=== PATIENT | male | born 1950 | race Caucasian/White ===

== ENCOUNTER 2017-06-09 12:17 | Inpatient (IN) | payer MEDICARE ==
[~2017-06-09] VITALS: Ht 175.3 cm; Wt 47.6 kg
--- NOTE | 2017-06-09 17:02 | NUR ---
PT RECIEVED FROM ER. PT ABLE TO TRANSFER SELF FROM GURNEY TO BED. VITALS WNL AT THIS TIME. PT DENIES PAIN, NAUSEA, AND SOB AT THIS TIME. PT ABLE TO COMMUNICATE CLEARLY, HAS RUN ON CONVERSATION WITH FANCIFUL IDEAS AT TIMES.
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
--- NOTE | 2017-06-09 18:45 | NUR ---
PT ABLE TO CECE 20% OF SOFT DINNER, PT STATES "I JUST DON'T EAT THAT MUCH ANY MORE". PT DENIES PAIN, NAUSEA, AND SOB AT THIS TIME. PT RESTING QUIETLY IN BED, COOPERATIVE AND POLITE.
--- NOTE | 2017-06-09 19:30 | NUR ---
REPORT RECEIVED FROM HARJEET LAROSE. PT IS RESTING IN BED, AWAKE, OCCASIONAL COUGHING HEARD. ON DROPLET PRECAUTIONS.
--- NOTE | 2017-06-09 20:30 | NUR ---
ASSESSMENT DONE. PT IS ALERT AND ORIENTED X4. DENIES PAIN AT THIS TIME DOES HAVE C/O COUGH, DENIES FEELING SOB. LUNGS WITH CRACKLES IN BASES, FEW IN LEFT MORE IN RIGHT. IVF INFUSING, PT USING URINAL TO VOID. DENIES NEEDS AT THIS TIME.
--- NOTE | 2017-06-09 22:15 | NUR ---
PT AWAKE IN BED, DENIES NEEDS, TURNING SELF IN BED FREQUENTLY, COUGHING OCCASIONALLY
--- NOTE | 2017-06-10 00:48 | NUR ---
PT RESTING, AWAKE IN BED, RR 33, SPO2 93% ON ROOM AIR DENIES SOB/PAIN. ASSESSMENT DONE, UNCHANGED FROM PREVIOUS.
--- NOTE | 2017-06-10 02:18 | NUR ---
PT RESTING WITH EYES CLOSED, REPS EVEN AND UNLABORED, RR 30 SPO2 94% ON ROOM AIR.
--- NOTE | 2017-06-10 04:15 | NUR ---
IN TO DO ASSESSMENT, AWAKENS EASILY. HAS BEEN HAVING SOME COUGHING THE LAST COUPLE OF HOURS. DENIES SOB, LUNGS STILL WITH CRACKLES IN BASES PT ON ROOM AIR SPO2 94% RR24.
--- NOTE | 2017-06-10 05:53 | NUR ---
LAB IN TO DRAW.
--- NOTE | 2017-06-10 07:18 | NUR ---
PT AWAKE IN BED HAVING SOME COUGHING. DENIES SOB. HAS BEEN ON ROOM AIR ALL NIGHT WITH SPO2 93-97%. OCCASIONAL COUGHING THROUGH THE NIGHT, VOIDING QUANTITY SUFFICIENT IN THE URINAL.
--- NOTE | 2017-06-10 11:11 | NUR ---
PATIENT UP TO BATHROOM AND AMBULATES WELL WITHOUT DIFFICULTY. PT DENIES SHORTNESS OF BREATH UPON EXERTION. PATIENT BACK TO CHAIR AFTER BATHROOM AND NOTES OUTLOUD "I FEEL SO MUCH BETTER TODAY." PATIENT REMAINS IN A SINUS RHYTHM IN THE 70-80s. SP02 IS 96% ON ROOM AIR. PT REMAINS IN DROPLET PRECAUTIONS.
--- NOTE | 2017-06-10 11:31 | NUR ---
DR. PRINCE IN TO SEE PATIENT AT THIS TIME. PT IN NEED OF PRODUCING 3 MORE SPUTUM SAMPLES FOR THE [employer] ORDER. ONE WILL BE SENT TODAY, AND THEN AGAIN TOMORROW MORNING AND AGAIN THE NEXT MORNING FOLLOWING. PATIENT INFORMED OF THIS. PT TO TRANSFER TO MED/SURG WITHOUT TELEMETRY. IVF TO BE TURNED DOWN TO 50 ML/HR. RECORDS TO BE OBTAINED FROM HOSPITAL IN [place] IF POSSIBLE.
--- NOTE | 2017-06-10 14:10 | NUR ---
PATIENT CONTINUES TO SIT IN CHAIR THIS AFTERNOON. NO NEW COMPLAINTS AT THIS TIME. ASSESSMENT UNCHANGED FROM PREVIOUS ASSESSMENT. PT HAS LOW APPETITE AND ATE ONLY HALF OF HIS SANDWICH FOR LUNCH. PT VOIDS TO URINAL FOR 250 ML YELLOW URINE. CONTINUE TO MONITOR. PLAN TO ALLOW PT TO SHOWER THIS AFTERNOON.
--- NOTE | 2017-06-10 15:00 | NUR ---
AMBULATED TO BR TO VOID AND HAVE LIQ STOOL. TOLERATED MOVEMENT WELL. DENEIS SHORTNESS OF BREATH.
--- NOTE | 2017-06-10 15:13 | EKG ---
[facility] [address] [facility] [address] [facility] [place] [address] Signed Normal sinus rhythm Normal ECG No previous ECGs available Confirmed by LIZETH PRINCE MD ([id number]) on 06/10/2017 3:13:35 PM Electronically Signed By: LIZETH PRINCE MD 06/10/17 1513 PATIENT NAME: MURALICECIL SRINIVASAN Electrocardiogram DATE OF : 52 PHYSICIAN: LIZETH PRINCE MD REPORT #: [id number] REPORT IS CONFIDENTIAL AND NOT TO BE RELEASED WITHOUT AUTHORIZATION
--- NOTE | 2017-06-10 17:06 | NUR ---
PT RECEIVED FROM CCU. PT SITTING IN CHAIR. PT ON ROOM AIR, LUNG SOUNDS CLEAR, OCCASIONAL COUGH. PT DENIES NAUSEA, TOLERATING REGUALR DIET, POOR APPETITE. PT SALINE LOCKED FOR SHOWER. CMS INTACT, WITHOUT EDEMA.
--- NOTE | 2017-06-10 18:47 | NUR ---
PT RESTING IN BED. PROVIDED WITH [facility] BLANKETS. PT COMPLETED WITH SHOWER. IV FLUIDS INFUSING AT 50 ML/HR. PT DENIES OTHER NEEDS AT THIS TIME.
--- NOTE | 2017-06-10 19:50 | NUR ---
RECEIVED REPORT FROM RN. PATIENT RESTING COMFORTABLY IN BED. DENIES NEEDS AT THIS TIME.
--- NOTE | 2017-06-10 20:47 | NUR ---
PATIENT RESTING COMFORTABLY IN BED, BREATHING IS EVEN AND UNLABORED. O2 SATURATION IS 95% ON ROOM AIR. DENIES NEEDS AT THIS TIME. MEDICATIONS GIVEN, ASSESSMENT AND VITALS DONE. CALL LIGHT WITHIN REACH.
--- NOTE | 2017-06-11 00:44 | NUR ---
PATIENT RESTING COMFORTABLY IN BED, BREATHING IS EVEN AND UNLABORED. O2 SATURATION IS 95% ON ROOM AIR, PULSE IS 86. DENIES NEEDS AT THIS TIME. CALL LIGHT WITHIN REACH.
--- NOTE | 2017-06-11 02:17 | NUR ---
ASSISTED PATIENT TO BATHROOM WITH SBA/NON-SLIP SOCKS. PATIENT TOLERATING AMBULATION WELL WITHOUT ANY INCREASES IN SHORTNESS OF BREATH. PATIENT DENIES FURTHER NEEDS AT THIS TIME. MEDICATION GIVEN, ASSESSMENT DONE. CALL LIGHT WITHIN REACH.
--- NOTE | 2017-06-11 04:20 | NUR ---
PATIENT RESTING COMFORTABLY IN BED, BREATHING IS EVEN AND UNLABORED. O2 SATURATION IS 95% ON ROOM AIR. SPUTUM CULTURE COLLECTED. DENIES NEEDS AT THIS TIME. CALL LIGHT WITHIN REACH.
--- NOTE | 2017-06-11 06:00 | NUR ---
PATIENT'S NIGHT WAS UNEVENTFUL. HE HAS BEEN RESTING COMFORTABLY IN BED THROUGHOUT SHIFT. VSS, URINE OUTPUT QS. NO COMPLAINTS OF PAIN. REMAINS ON ROOM AIR, CONTINUES TO HAVE HARSH COUGH, NO BLOODY SPUTUM THIS SHIFT. HAS IV FLUIDS INFUSING, SBA TO BATHROOM. NO ACUTE CHANGES FROM BEGINNING OF SHIFT.
--- NOTE | 2017-06-11 06:22 | NUR ---
PATIENT RESTING COMFORTABLY IN BED, BREATHING EVEN AND UNLABORED. O2 SATURATION IS 95% ON ROOM AIR. DENIES NEEDS AT THIS TIME. CALL LIGHT WITHIN REACH.
--- NOTE | 2017-06-11 07:05 | NUR ---
BEDSIDE HANDOFF REPORT RECEIVED FROM DIRECTOR RETIREMENT RN. PT SLEEPING,LEFT UNDISTURBED.
--- NOTE | 2017-06-11 08:35 | NUR ---
PT RESTING IN BED. PT COMPLAINT OF HEADAHCE, GIVEN 500 MG PO TYLENOL. PT TOLERATING REGULAR DIET. PT ON ROOM AIR, LUNG SOUNDS CLEAR, O2 SATS 93%. IV FLUIDS INFUSING D5LR AT 50 ML/HR. PT WITH GOOD URINE OUTPUT, VOIDING WITHOUT DIFFICULTY. CMS INTACT, WITHOUT EDEMA, PULSES [place]. DISCUSSED PLAN OF CARE FOR THE DAY. PT DENIES OTHER NEEDS AT THIS TIME.
--- NOTE | 2017-06-11 08:36 | NUR ---
PT IS SITTING UP IN BED FOR BREAKFAST. STATES HE HAS NO NEEDS AT THIS TIME. CALL LIGHT IS IN REACH.
--- NOTE | 2017-06-11 10:43 | NUR ---
PT STATES NO NEEDS AT THIS TIME. VITALS AND I&O'S TAKEN AND DOCUMENTED. CALL LIGHT IS IN REACH.
--- NOTE | 2017-06-11 11:23 | NUR ---
PT RESTING IN BED. PT STATES HEADACHE HAS RESOLVED. PT DENIES NEEDS AT THIS TIME.
--- NOTE | 2017-06-11 13:02 | NUR ---
PT IS UP IN CHAIR FOR LUNCH. NO OTHERS NEEDS AT THIS TIME. CALL LIGHT IS IN REACH.
--- NOTE | 2017-06-11 14:45 | NUR ---
PT SIITING IN CHAIR. PT DENIES PAIN. PT ON ROOM AIR, O2 SATS 98%. IV FLUIDS INFUSING D5LR AT 50 ML/HR, IV AZITHROMYCIN INFUSING. PT TOELRATING REGULAR DIET, ENJOYS CHOCOLATE ENSURE. PT VOIDING QS, HAD LOOSE STOOL TODAY. PT INDEPENDENT IN ROOM. PT DENIES NEEDS AT THIS TIME.
--- NOTE | 2017-06-11 17:18 | NUR ---
PT STATES HE HAS NO NEEDS AT THIS TIME. VITALS AND I&O'S HAVE BEEN TAKEN AND DOCUMENTED. URINAL HAS BEEN EMPTIED. CALL LIGHT IS IN REACH.
--- NOTE | 2017-06-11 17:35 | NUR ---
PT ON ROOM AIR, LUNG SOUNDS CLEAR. PT TOLERATING REGULAR DIET, ENCOURAGE INTAKE, ENSURE WITH MEALS. IV FLUIDS INFUSING D5LR AT 50 ML/HR, ROCEPHIN, ZITHROMAX AND VANCO, VANCO TROUGH 9.1. PT INDEPENDENT IN ROOM. PT WITH LOOSE STOOL TODAY, MONITOR. VOIDING QS.
--- NOTE | 2017-06-11 21:29 | NUR ---
PT WOKE EASLIY WHEN NURSE ENTERED ROOM. PULSEOX READING 97%. IV INFUSING PER ORDER. ASSESSMENT COMPLETE. HAS NO COMPLAINTS, STATES HE WILL CALL WHEN HE NEEDS SOMETHING. ENCOURAGED PT TO USE CALL LIGHT AND NOT GET UP BY HIMSELF. HE STATED HE WILL CALL FOR HELP.
--- NOTE | 2017-06-11 23:44 | NUR ---
PT WITH EYES CLOSED, RESP EVEN AND UNLABORED. NO COUGHING HEARD. PULSEOX READING 95%, PULSE 66.
--- NOTE | 2017-06-12 01:10 | NUR ---
CHECKED IN ON PT. RESP EVEN AND UNLABORED. PULSEOX READING O2 @ 95, PULSE 71. LAYING ON HIS LEFT SIDE. IV FLUIDS CONTINUE.
--- NOTE | 2017-06-12 02:46 | NUR ---
pt with eyes closed. iv antibiotic infusing per order. pulse ox sats 94 on room air. pt not request anything at this time.
--- NOTE | 2017-06-12 06:18 | NUR ---
PT DORI SLEEPING. HAS DENIED DISCOMFORT THIS SHIFT. USES THE URINAL INDEPENDENTLY. D5LR@50 INFUSING. RECEIVED VANCO X 1 THIS SHIFT. PULSE OX READING O2 IN THE 90'S THIS SHIFT. IS ON DROPLET ISOLATION WHILE THE PENDING SPUTUM RESULTS FOR TB ARE PENDING. HAS NOT HAD "NIGHT SWEATS" THIS SHIFT, NOR ANY COUGHING. WILL NEED DISCHARGE PLANNING DUE TO HOMELESS. PLEASANT AND COOPERATIVE THIS SHIFT.
--- NOTE | 2017-06-12 07:44 | NUR ---
PT SITTING UP IN BED AWAKE AND ALERT. C/O HEADACHE 5/10 PAIN. TYLENOL GIVEN. PT TELLING STORIES/INFORMATION HE KNOWS TO STAFF. WILL GIVE COFFEE AND ICE WATER REQUESTED BY PATIENT. 94% O2 SATS ON ROOM AIR. REPORTS UNABLE TO CLEAR SECRETION FROM THROAT. NO COUGHING THIS MORNING. LUMS DIM BUT CLEAR THROUGHOUT. ACTIVE BOWEL TONES. +2 PEDAL PULSES.
--- NOTE | 2017-06-12 09:30 | NUR ---
PATIENT UP TO SHOWER. LINENS CHANGED BY STUDENT NURSE. FRESH ICE WATERGIVEN.
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
[2017-06-12] MEDS ORDERED: CEFPODOXIME PR200 MG PO (11:55)
--- NOTE | 2017-06-12 12:13 | NUR ---
discharging patient to homeless halfway. address given to patient by community health nurse. will plan to discharge patient soon after paperwork given and IV removed.
== END 2017-06-12 13:15 | disposition home or self-care (01) | DRG 871 ==
LOC: ED 12:17 → CCU 16:08 → MS 06-10 16:45
PROVIDERS: ADMIT Internal Medicine
PROC: 3E0234Z Introduction of Serum, Toxoid and Vaccine into Muscle, Percutaneous Approach (ICD-10-PCS; principal; 2017-06-12)
DX: A41.9 Sepsis, unspecified organism (principal); J13 Pneumonia due to Streptococcus pneumoniae; J44.0 Chronic obstructive pulmonary disease with (acute) lower respiratory infection; J44.1 Chronic obstructive pulmonary disease with (acute) exacerbation; E46 Unspecified protein-calorie malnutrition; Z23 Encounter for immunization; Z68.1 Body mass index [BMI] 19.9 or less, adult; Z66 Do not resuscitate; G89.29 Other chronic pain; F17.200 Nicotine dependence, unspecified, uncomplicated; I49.9 Cardiac arrhythmia, unspecified; Z59.0 Homelessness
CPT/HCPCS: 36415; 36600; 71045; 71260; 80053; 80069; 80202; 81001; 82607; 82728; 82746; 82803; 83540; 83605; 83735; 83880; 84466; 84484; 85025; 85045; 85379; 87015; 87040; 87070; 87116; 87205; 87206; 87449; 87502; 87556; 87798; 87899; 90662; 93005; 93010; 94640; 94668; 99406; G0008; J0456; J0696; J1650; J2405; J3370; J7030; J7040; J7050; J7120; Q9967